=== PATIENT | female | born 1960 | race Caucasian/White ===

== ENCOUNTER 2022-06-15 10:06 | Day surgery (SDC) | payer BC, OTHER ==
[~2022-06-15] VITALS: Ht 162.6 cm; Wt 72.6 kg
[~2022-06-15 10:06] MED LIST: B-12100010 PO; BSS IRRIG/VANCO(10MG)/TOBRA(5MG)/EPINEPH(1:1000-0.5CC)500ML BAG-ORONLY IR ONE; CALC-190 PO; CEFUROXIME 1MG/0.1ML INTRACAMERAL INJ As Ordered ONE; CLONI1TA PO; CYCL-707 PO; CYCLOPENTOLATE 1% OPHTH SOLN 2ML BTL OD SCH; CYMB60CA4 PO; LEVO50TA5 PO; LIDOCAINE 1% SDV 5ML VIAL As Ordered ONE; LIDOCAINE 3.5 % 1ML OPHTH TOPICAL GEL OU ONE; LIPI10TA PO; OFLOXACIN 0.3 % (OCUFLOX) OPTH SOL 5ML OD ONE; PANT40TA29 PO; PHENYLEPHRINE 10% OPHTH SOL 5ML OD PRN; PHENYLEPHRINE 2.5% OPHTH SOL 2ML OD SCH; PROBCAP14 PO; TIZA4CAP6 PO; TRAZ-257 PO; TROPICAMIDE 1% OPHTH SOLN 15ML OD SCH; VITMTA PO
[2022-06-15] MEDS ORDERED: MIDAZOLAM INJ 2MG/2ML VIAL As Ordered ONE (11:26)
[2022-06-15] MEDS ORDERED: fentaNYL 100 MCG/2 ML INJECTION As Ordered ONE (11:26)
[2022-06-15] MEDS ORDERED: ONDANSETRON 4MG 2ML VIAL As Ordered ONE (12:16)
[2022-06-15 12:55] VITALS: BP 122/76
== END 2022-06-15 13:00 | disposition home or self-care (01) ==
LOC: M SDC 10:06
PROVIDERS: ATTEND Ophthalmology
DX: H25.11 Age-related nuclear cataract, right eye (principal); E78.5 Hyperlipidemia, unspecified; E03.9 Hypothyroidism, unspecified; F41.9 Anxiety disorder, unspecified; F32.A Depression, unspecified; M54.50 Low back pain, unspecified; R06.83 Snoring; M13.80 Other specified arthritis, unspecified site; Z79.899 Other long term (current) drug therapy
CPT/HCPCS: 66984; J0697; J2250; J2405; J3010; V2632

== ENCOUNTER → 2023-10-30 | Outpatient (CLI) | payer BC ==
[~2023-10-30] MED LIST changes: -BSS IRRIG/VANCO(10MG)/TOBRA(5MG)/EPINEPH(1:1000-0.5CC)500ML BAG-ORONLY IR ONE; -CEFUROXIME 1MG/0.1ML INTRACAMERAL INJ As Ordered ONE; -CYCLOPENTOLATE 1% OPHTH SOLN 2ML BTL OD SCH; -LIDOCAINE 1% SDV 5ML VIAL As Ordered ONE; -LIDOCAINE 3.5 % 1ML OPHTH TOPICAL GEL OU ONE; -OFLOXACIN 0.3 % (OCUFLOX) OPTH SOL 5ML OD ONE; -PHENYLEPHRINE 10% OPHTH SOL 5ML OD PRN; -PHENYLEPHRINE 2.5% OPHTH SOL 2ML OD SCH; +TIZA4CAP3 PO; -TIZA4CAP6 PO; -TROPICAMIDE 1% OPHTH SOLN 15ML OD SCH
== END ==
LOC: M RAD 09:56
PROVIDERS: ATTEND Family Medicine
DX: M54.16 Radiculopathy, lumbar region (principal); R74.8 Abnormal levels of other serum enzymes
CPT/HCPCS: 78306; A9503